=== PATIENT | female | born 1935 | race Hispanic/Latino ===

== ENCOUNTER 2018-04-29 13:32 | Emergency (ER) | payer MEDICARE ==
--- NOTE | 2018-04-29 15:08 | RAD ---
Date of service: 04/29/2018 PROCEDURE: Bilateral knees HISTORY: fall, knee pain COMPARISON: TECHNIQUE: Two views of each knee were obtained FINDINGS: There is no evidence of fracture or joint effusion. Mild joint space narrowing is seen bilaterally IMPRESSION: No acute findings
--- NOTE | 2018-04-29 15:09 | RAD ---
Date of service: 04/29/2018 HISTORY: fall COMPARISON: No prior. FINDINGS: LUNGS: No active pulmonary disease. PLEURA: No significant pleural effusion identified, no pneumothorax apparent. CARDIOVASCULAR: No aortic atherosclerotic calcification present. Moderate cardiomegaly no pulmonary vascular congestion. OSSEOUS STRUCTURES: No significant abnormalities. VISUALIZED UPPER ABDOMEN: Normal. OTHER FINDINGS: None. IMPRESSION: No active disease.
--- NOTE | 2018-04-29 15:34 | CT ---
Date of service: 04/29/2018 PROCEDURE: CT HEAD WITHOUT CONTRAST. HISTORY: headache/trauma COMPARISON: None available. TECHNIQUE: Axial computed tomography images were obtained through the head/brain without intravenous contrast. Radiation dose: Total exam DLP = 785.46 mGy-cm. This CT exam was performed using one or more of the following dose reduction techniques: Automated exposure control, adjustment of the mA and/or kV according to patient size, and/or use of iterative reconstruction technique. FINDINGS: HEMORRHAGE: No intracranial hemorrhage. BRAIN: No mass effect or edema. Chronic microvascular changes. Mild atrophy VENTRICLES: Unremarkable. No hydrocephalus. CALVARIUM: Unremarkable. PARANASAL SINUSES: Unremarkable as visualized. No significant inflammatory changes. MASTOID AIR CELLS: Unremarkable as visualized. No inflammatory changes. OTHER FINDINGS: None. IMPRESSION: No acute findings
[2018-04-29] MEDS ORDERED: TDAP Vaccine 0.5 mL Syr IM ONE (15:39)
--- NOTE | 2018-04-29 15:43 | CT ---
Date of service: 04/29/2018 PROCEDURE: CT Cervical Spine without contrast HISTORY: fall COMPARISON: None available. TECHNIQUE: Axial computed tomography images were obtained of the cervical spine without the use of intravenous contrast. Coronal and sagittal reformatted images were created and reviewed. Radiation dose: Total exam DLP = 342.31 mGy-cm. This CT exam was performed using one or more of the following dose reduction techniques: Automated exposure control, adjustment of the mA and/or kV according to patient size, and/or use of iterative reconstruction technique. FINDINGS: VERTEBRAE: No fracture. Normal alignment. No destructive bony lesion. DISCS/SPINAL CANAL/NEURAL FORAMINA: No significant central canal or neural foraminal stenosis. Disc degeneration at C5-6 and C6-7. PARASPINAL SOFT TISSUES: Unremarkable. OTHER FINDINGS: None. IMPRESSION: Unremarkable CT of the cervical spine.
--- NOTE | 2018-04-29 16:16 | CARD ---
APPROVED REPORT Date of service: 04/29/2018 EKG Measurement Heart [id number] <Conclusion> Normal sinus rhythm Low voltage QRS Septal infarct, age undetermined Abnormal ECG
--- NOTE | 2018-04-29 16:37 | ED PDOC ---
Arrival/HPI - General Chief Complaint: Trauma Time Seen by Provider: 04/29/18 14:07 Historian: Patient - History of Present Illness Narrative History of Present Illness (Text): 04/29/18 16:34 82-year-old female presents today with head injury and bilateral knee pain status post fall. Patient states she missed a step and fell down 8 stairs. Patient denies loss of consciousness. She is complaining of headache and bilateral knee pain. She denies back pain. She denies back pain. She denies chest pain or shortness of breath. She denies dizziness or weakness. She denies abdominal pain. No nausea vomiting diarrhea or constipation. pt denies numbness, weakness, tingling in the extremities. no other complaints. Time/Duration: Prior to Arrival Past Medical History - Provider Review Nursing Documentation Reviewed: Yes - Travel History Have you recently traveled outside [place] w/in the past 3 mons?: No - Cardiac Hx Hypertension: Yes - Psychiatric Hx Substance Use: No Family/Social History - Physician Review Nursing Documentation Reviewed: Yes Family/Social History: Unknown Family HX Smoking Status: Never Smoked Hx Alcohol Use: No Hx Substance Use: No Allergies/Home Meds Allergies/Adverse Reactions: Allergies No Known Allergies Allergy (Verified 04/29/18 13:45) Review of Systems - Review of Systems Constitutional: absent: Fatigue, Fevers Eyes: absent: Vision Changes, Photophobia, Eye Pain Respiratory: absent: SOB, Cough Cardiovascular: absent: Chest Pain, Palpitations Gastrointestinal: absent: Abdominal Pain, Constipation, Diarrhea, Nausea, Vomiting Genitourinary Female: absent: Dysuria, Frequency, Hematuria Musculoskeletal: Arthralgias. absent: Back Pain, Neck Pain Skin: absent: Rash, Pruritis Neurological: Headache. absent: Dizziness Psychiatric: absent: Anxiety, Depression Physical Exam Vital Signs Reviewed: Yes Vital Signs Temp Pulse Resp BP Pulse Ox 04/29/18 14:19 97.9 F 68 18 158/90 H 100 Temperature: Afebrile Blood Pressure: Hypertensive Pulse: Regular Respiratory Rate: Normal Appearance: Positive for: Well-Appearing, Non-Toxic, Comfortable Pain Distress: None Mental Status: Positive for: Alert and Oriented X 3 - Systems Exam Head: Present: Tenderness (+ ttp over right posterior scalp. no step offs or crepitus), Contusion Pupils: Present: PERRL Extroacular Muscles: Present: EOMI Conjunctiva: Present: Normal Ears: Present: Normal, NORMAL TM Mouth: Present: Moist Mucous Membranes Neck: Present: Normal Range of Motion, Trachea Midline. No: MIDLINE TENDERNESS, Paraspinal Tenderness Respiratory/Chest: Present: Clear to Auscultation, Good Air Exchange. No: Respiratory Distress, Accessory Muscle Use, Tender to Palpation Cardiovascular: Present: Regular Rate and Rhythm, Normal S1, S2, Other (no ecchymosis). No: Murmurs Abdomen: Present: Other (no ecchymosis). No: Tenderness, Distention, Peritoneal Signs, Rebound, Guarding Back: Present: Normal Inspection, Other (no ecchymosis). No: Midline Tenderness, Paraspinal Tenderness Upper Extremity: Present: Normal Inspection, Normal ROM Lower Extremity: Present: Normal ROM, Tenderness (+ ttp over bilateral anterior knees; no edema. + abrasion noted over right anterior knee. ), Neurovascularly Intact, Capillary Refill < 2 s. No: Swelling, Erythema Neurological: Present: GCS=15, Speech Normal Skin: Present: Warm, Dry, Normal Color. No: Rashes Psychiatric: Present: Alert, Oriented x 3 Medical Decision Making ED Course and Treatment: 04/29/18 16:41 82yr old female with head injury and knee pain s/p fall down 8 stairs. cbc; wnl cmp; NA: 127 ekg; normal sinus rhythm at [address] elevations normal axis QTC 396 cxr; wnl head ct; FINDINGS: HEMORRHAGE: No intracranial hemorrhage. BRAIN: No mass effect or edema. Chronic microvascular changes. Mild atrophy VENTRICLES: Unremarkable. No hydrocephalus. CALVARIUM: Unremarkable. PARANASAL SINUSES: Unremarkable as visualized. No significant inflammatory changes. MASTOID AIR CELLS: Unremarkable as visualized. No inflammatory changes. OTHER FINDINGS: None. IMPRESSION: No acute findings cspine: FINDINGS: VERTEBRAE: No fracture. Normal alignment. No destructive bony lesion. DISCS/SPINAL CANAL/NEURAL FORAMINA: No significant central canal or neural foraminal stenosis. Disc degeneration at C5-6 and C6-7. PARASPINAL SOFT TISSUES: Unremarkable. OTHER FINDINGS: None. IMPRESSION: Unremarkable CT of the cervical spine. chest/abd/pelvis; FINDINGS: CHEST: LUNGS: 7 mm subpleural nodule in the right lower lobe. PLEURAL SPACES: No evidence of pneumothorax. No pleural effusion. HEART: No cardiomegaly. No significant pericardial effusion. LYMPH NODES: No lymphadenopathy is evident. ABDOMEN AND PELVIS: LIVER: Unremarkable. No focal lesions. GALLBLADDER AND BILE DUCTS: The gallbladder appears within normal limits. No radioopaque gallstones are se en. No biliary ductal dilatation is evident. PANCREAS: Unremarkable. SPLEEN: Unremarkable. ADRENAL GLANDS: Unremarkable. KIDNEYS, URETERS, AND BLADDER: Unremarkable. No hydronephrosis or nephrolithiasis. No uterteral or bladder calculi. STOMACH AND BOWEL: Hiatal hernia. No evidence of bowel obstruction. No evidence suggesting enteritis or colitis. APPENDIX: No evidence of acute appendicitis on CT examination. PERITONEUM: No free fluid. No free air. LYMPH NODES: No lymphadenopathy is evident. VASCULATURE: No evidence of abdominal aortic aneurysm. BONES: No acute osseous abnormality. IMPRESSION: 7 mm right lower lobe nodule. No acute intra-thoracic, intra-abdominal, or intra-pelvic abnormality. 04/29/18 18:24 Tetanus updated, Tylenol given for pain. Patient reassessment: Patient nontoxic well-appearing in no distress feeling much better. Bacitracin and a dressing applied to the abrasion on the right knee. I discussed all results in depth with the patient advised follow-up with the primary care physician and orthopedist within the next 2 days. Advised immediate return if symptoms worsen persist or if new concerning symptoms develop I discussed the CAT scan results in depth with the patient and advised the patient of pulmonary nodule found on CAT scan as well as a low-sodium result in her blood work. Patient states she has a history of low sodium in the past and she has been cutting sodium out of her diet trying to treat her high blood pressure. Patient verbalizes understanding of discharge instructions and need for immediate followup. all aspects of this case were discussed the attending of record. Impression: Head injury, knee pain, low sodium, pulmonary nodule, fall, trauma Tylenol every 4 hours as needed for pain Increase fluids keep wounds clean and dry; apply bacitracin twice daily. Follow-up with primary care physician within the next 2 days regarding low sodium and pulmonary nodule. Follow-up the orthopedist within the next 2 days Return immediately if symptoms worsen persist or if new concerning symptoms develop 04/29/18 18:36 - RAD Interpretation Radiology Orders: 04/29/18 14:08 CERVICAL SPINE W/O CONTRAST [CT] Stat HEAD W/O CONTRAST [CT] Stat CHEST PORTABLE [RAD] Stat KNEES BILATERAL [RAD] Stat 11/04/18 16:27 CHEST,ABD,PEL W/IV CONT ONLY [CT] Stat - Medication Orders Current Medication Orders: Discontinued Medications Acetaminophen (Tylenol 325mg Tab) 975 mg PO STAT STA Stop: 04/29/18 15:39 Last Admin: 04/29/18 15:51 Dose: 975 mg [facility] Pain/Vitals Document 04/29/18 15:51 GMI (Rec: 04/29/18 15:51 GMI [id number]) Pain Reassessment Is This A Pain ReAssessment? Yes Sleep Is patient sleeping during reassessment? No Presence of Pain Presence of Pain Yes Tetanus/Reduced Diphtheria/Acell Pertussis (Boostrix Vaccine Inj) 0.5 ml IM .ONCE ONE Stop: 04/29/18 15:40 Last Admin: 04/29/18 15:52 Dose: 0.5 ml Immunization Registry Document 04/29/18 15:52 GMI (Rec: 04/29/18 15:52 GMI [id number]) [facility]-Date provided 04/29/18 [facility] Immunization Data Document 04/29/18 15:52 GMI (Rec: 04/29/18 15:52 GMI [id number]) Immunization Data Vaccine Information Sheet Given Yes Disposition/Present on Arrival - Present on Arrival Any Indicators Present on Arrival: No History of DVT/PE: No History of Uncontrolled Diabetes: No Urinary Catheter: No History of Decub. Ulcer: No History Surgical Site Infection Following: None - Disposition Have Diagnosis and Disposition been Completed?: Yes Diagnosis: Head injury, Hyponatremia, Pulmonary nodule, Knee pain, Abrasion, knee Disposition: HOME/ ROUTINE Disposition Time: 17:33 Patient Plan: Discharge Patient Problems: Current Active Problems Problem Status Onset Abrasion, knee Acute Head injury Acute Hyponatremia Acute Knee pain Acute Pulmonary nodule Acute Condition: GOOD Discharge Instructions (ExitCare): Closed Head Injury (DC), Hyponatremia (DC), Skin Abrasions (DC), Knee Pain (DC), Pulmonary Nodule Additional Instructions: Tylenol every 4 hours as needed for pain Increase fluids Keep wounds clean and dry, apply bacitracin twice daily Follow-up with primary care physician within the next 2 days regarding low sodium and pulmonary nodule. Follow-up the orthopedist within the next 2 days Return immediately if symptoms worsen persist or if new concerning symptoms develop Referrals: Wily Levin MD [Family Provider] - Follow up with primary Carisa Prince MD [Medical Doctor] - Follow up with primary [facility] [facility] [Outside] - Follow up with primary Arnulfo Truong MD [Staff Provider] - Follow up with primary Forms: [employer] (Qatari)
[2018-04-29 16:55] LABS: BASO # 0.04 K/mm3 (0.0-2.0); BASO % 0.5 % (0.0-3.0); EOS # 0.1 (0.0-0.7); EOS % 0.8 % (1.5-5.0); GRAN # 6.35 (1.4-6.5); GRAN % 81.8 % (50.0-68.0); HEMOGLOBIN 10.5 g/dL (12.0-16.0); LYMPH % 13.3 % (22.0-35.0); MEAN CELL VOLUME 90.9 fl (80.0-105.0); MEAN CORPUSCULAR HEMOGLOBIN 31.9 pg (25.0-35.0); MEAN CORPUSCULAR HGB CONC 35.1 g/dl (31.0-37.0); MEAN PLATELET VOLUME 10.3 fl (7.0-11.0); MONO # 0.3 (0.1-0.6); MONO % 3.6 % (1.0-6.0); RBC 3.29 10^6/uL (3.5-6.1); RED CELL DISTRIBUTION WIDTH 12.8 % (11.5-14.5); WHITE BLOOD COUNT 7.8 10^3/uL (4.5-11.0)
[2018-04-29 16:59] LABS: INR 1.04; PARTIAL THROMBOPLASTIN TIME 28.4 Seconds (25.1-36.5); PROTHROMBIN TIME 11.9 SECONDS (9.4-12.5)
[2018-04-29 17:04] LABS: ALB/GLOB RATIO 1.3 (1.1-1.8); ALT/SGPT 24 U/L (7-56); AST/SGOT 39 U/L (14-36); BLOOD UREA NITROGEN 11 mg/dL (7-21); CALCIUM 9.1 mg/dL (8.4-10.5); GFR NON-AFRICAN AMERICAN > 60
[2018-04-29] MEDS ORDERED: Sodium Chloride 0.9% 500 ML IV STA (17:06)
[2018-04-29] MEDS ORDERED: Iohexol 350 MG/100 ML VIAL ONE (17:11)
[2018-04-29 18:56] VITALS: BP 129/53; PULSE 75; RESP 19; TEMP 98; O2SAT 97
--- NOTE | 2018-04-30 10:38 | CT ---
Date of service: 04/29/2018 PROCEDURE: CT Chest, Abdomen and Pelvis with intravenous contrast HISTORY: trauma fall down stairs COMPARISON: None available. TECHNIQUE: IV dose administered: 100 cc of Omni 350 Radiation dose: Total exam DLP = 618.46 mGy-cm. This CT exam was performed using one or more of the following dose reduction techniques: Automated exposure control, adjustment of the mA and/or kV according to patient size, and/or use of iterative reconstruction technique. FINDINGS: CT CHEST WITH CONTRAST: LUNGS: 7 mm right lower lobe nodule MEDIASTINUM: Unremarkable. Normal caliber aorta and pulmonary arterial trunk. No aortic dissection. Normal size heart. LYMPH NODES: Unremarkable. PLEURA: Unremarkable. No pneumothorax. No pleural fluid. BONES: Unremarkable. OTHER FINDINGS: None. CT ABDOMEN AND PELVIS: LIVER: Unremarkable. No gross lesion or ductal dilatation. GALLBLADDER AND BILE DUCTS: Unremarkable. PANCREAS: Unremarkable. No gross lesion or ductal dilatation. SPLEEN: Unremarkable. ADRENALS: Unremarkable. No mass. KIDNEYS AND URETERS: Unremarkable. No hydronephrosis. No solid mass. VASCULATURE: Aortic calcifications are seen. Unremarkable. No aortic aneurysm. BOWEL: Unremarkable. No obstruction. No gross mural thickening. Moderate constipation APPENDIX: Normal appendix. PERITONEUM: Unremarkable. No free fluid. No free air. LYMPH NODES: Unremarkable. No enlarged lymph nodes. BLADDER: Unremarkable. REPRODUCTIVE: Unremarkable. BONES: No acute fracture. OTHER FINDINGS: The report concurs with the preliminary [facility] report IMPRESSION: No acute intrathoracic or intra-abdominal findings
== END 2018-04-29 18:56 | disposition home or self-care (01) ==
LOC: ED 13:32
DX: S09.90XA Unspecified injury of head, initial encounter (principal); S80.211A Abrasion, right knee, initial encounter; W10.9XXA Fall (on) (from) unspecified stairs and steps, initial encounter; E87.1 Hypo-osmolality and hyponatremia; R91.1 Solitary pulmonary nodule; I10 Essential (primary) hypertension; Z23 Encounter for immunization
CPT/HCPCS: 70450; 71045; 71260; 72125; 73560; 74177; 80053; 85025; 85610; 85730; 90471; 90715; 93005; 96360; 99284; J7040; Q9967